=== PATIENT | female | born 1970 | race Caucasian/White ===

== ENCOUNTER 2019-10-04 18:40 | Observation (INO) | payer SELFPAY ==
[2019-10-04] VITALS (42 sets, daily range): BP systolic 98–127; BP diastolic 42–80; PULSE 60–87; RESP 16–18; TEMP 36.7–37.3; O2SAT 91–99; BMI 26.4
--- NOTE | 2019-10-04 18:51 | ED_ITS ---
Entered by Rupali Byers, acting as scribe for Lorena Salazar Oct 04, 2019 18:40 HPI - General Adult General: Chief complaint: Weakness Stated complaint: sent by doctor for blood transfusion Time Seen by Provider: 10/04/19 18:50 Source: patient and family Mode of arrival: ambulatory Limitations: no limitations History of Present Illness: HPI narrative: 49 yo female presents to ED with complaints of anemia, fatigue and shortness of breath. She said this has not been feeling well for a long time. 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 She was seen at a clinic in [facility] today and her HGB was 5.7 so the patient was instructed to come to the ED for a possible blood transfusion. The patient states she takes Excederin migraine for frequent headaches. Onset (ago): month(s) Radiation: non-radiation Severity: severe Quality: constant (fatigue) and other (frequent shortness of breath) Relieving factors: none Exacerbating factors: none Associated symptoms: Reports headache(s), malaise and short of breath; Deny chest pain, nausea, rash, palpitations, syncope or vomiting Treatments prior to arrival: other (Excederin Migraine) Review of Systems General: Reports: other (negative unless marked) Const: Reports: malaise Eyes: Denies: change in vision or blurry vision ENMT: Denies: throat pain, painful swallowing, hoarseness, ear pain, ear discharge or Change in hearing Card: Denies: chest pain, palpitations, irregular heart rhythm, syncope, pre- syncope, shortness of breath on exertion or shortness of breath when lying down Resp: Denies: productive cough, non-productive cough, wheezing, coughing up blood or chest congestion GI: Denies: abdominal pain, nausea, vomiting, vomiting blood, coffee grounds in vomit, diarrhea, constipation, cramping, blood in stool or black tarry stool : Denies: flank pain, painful urination, urinary frequency, urinary urgency, decreased urine ouput, urinary incontinence or blood in urine Musc: Denies: neck pain, back pain, extremity pain, extremity swelling, joint pain, joint swelling, joint warmth or joint stiffness Skin/Breast: Denies: rash, skin tenderness or yellow skin Neuro: Reports: headache Endo: Denies: excessive thirst, cold intolerance, excessive sweating, flushing or hot flashes Christopher/Lymph: Denies: easy bruising, easy bleeding, petechiae or enlarged lymph nodes All/Imm: Denies: hives, throat swelling, tongue swelling, facial swelling or acute wheezing PFSH ED PFSH: Statuses (acute, chronic, etc) shown below reflect problem list status as previously entered and may not be historically accurate Medical History History of ITP (Acute) Surgical History No history of previous surgery (Acute) Family History Son Cancer Hodgkin's lymphoma diagnosed at age 19, doing well after treatment Father CAD (coronary artery disease) Lots of heart problems Diabetes Social History Smoking and tobacco status: never smoked Alcohol intake: never Substance/Drug Use: never Household members: spouse Marital status: Physical Exam Const: COMMON NORMALS: no apparent distress, oriented x3, no limitations, healthy appearing and well nourished EXAM LIMITATIONS: no altered mental status GENERAL APPEARANCE: cooperative, well kempt and well developed ORIENTATION/CONSCIOUSNESS: Yes awake HENMT: COMMON NORMALS: normocephalic, head/scalp atraumatic, hearing grossly normal bilaterally, external ears normal, EAC's normal, external nose normal and moist oral mucous membranes HEAD & SCALP: normal to inspection, normocephalic and atraumatic FACE & SINUS: normal facial exam and face symmetric NOSE: external nose normal and nares normal EXTERNAL EAR: Yes external ears normal EXTERNAL AUDITORY CANAL: EAC's normal MOUTH: oral and palatal mucosa normal and tongue normal Eye: COMMON NORMALS: PERRL, EOMs intact bilaterally, conjunctivae normal and no scleral icterus GENERAL EYE: normal appearance of both eyes and normal light reflex CONJUNCTIVA: Yes conjunctivae normal SCLERA: sclerae normal CORNEA: Yes corneas normal PUPIL: Yes PERRL DIRECT OPHTHALMOSCOPY: Yes normal light reflex Neck/C-Spine: COMMON NORMALS: full ROM, no lymphadenopathy, supple, no meningeal signs and no JVD GENERAL: Yes normal visual inspection and Yes trachea midline CERVICAL SPINE: Yes cervical ROM normal Chest: COMMONS NORMALS: inspection of chest normal and palpation of chest normal Resp: COMMON NORMALS: normal respiratory effort, no retractions, no use of accessory muscles and clear to auscultation bilaterally EFFORT & INSPECTION: Yes able to speak in complete sentences AUSCULTATION: clear to auscultation bilaterally Cardio: COMMON NORMALS: no JVD, regular rate, regular rhythm, S1 normal heart sound, S2 normal heart sound, no gallops, no clicks, no murmurs and no rub JUGULAR VENOUS DISTENTION: no JVD RATE: regular rate RHYTHM: regular rhythm HEART SOUNDS: S1 normal and S2 normal GI: COMMON NORMALS: soft to palpation, non-tender, no hepatosplenomegaly and no masses INSPECTION: Yes normal to inspection PALPATION: Yes soft and Yes no hepatosplenomegaly RECTAL EXAM: heme negative stool : COMMON NORMALS: Yes no CVA tenderness BLADDER/KIDNEY EXAM: Yes no CVA tenderness Back/Pelvis: COMMON NORMALS: no CVA tenderness, thoracic and lumbar spine normal to inspection, no thoracic nor lumbar tenderness and thoraco-lumbar ROM normal Extremity: COMMON NORMALS: normal to inspection, full ROM, normal capillary refill, no joint enlargement, no clubbing, cyanosis or edema and no calf tenderness Neuro: COMMON NORMALS: oriented x3, CN's II-XII intact bilaterally, moves all extremities, no focal motor deficits and no sensory deficits noted MENINGEAL SIGNS: Yes no meningeal signs Psych: COMMON NORMALS: mental status grossly normal, thought process normal, cooperative, affect normal, speech normal and activity/motor behavior normal APPEARANCE: Yes well kempt SPEECH: Yes normal speech THOUGHT PROCESS: normal thought process Skin: COMMON NORMALS: no rashes or lesions noted, skin turgor normal, no jaundice, no petechiae and no mottling GENERAL SKIN EXAM: no rashes or lesions noted and turgor normal Course Vital Signs: Vital signs: Vital Signs Temperature 99.1 F 10/04/19 23:23 Pulse Rate 60 10/04/19 23:23 Respiratory Rate 18 10/04/19 23:23 Blood Pressure 116/75 10/04/19 23:23 Pulse Oximetry 97 10/04/19 23:23 MDM - General Adult MDM Narrative: Medical decision making narrative: The patient is receiving blood now in the ER. She was Hemoccult negative here. I am still suspicious of a possible GI loss as she takes a lot of nonsteroidal medications for migraine headaches. The case was endorsed to Dr. Beauchamp and she agrees to admit for further evaluation and care and transfusion. Lab Data: Labs: Lab Results 10/04/19 10/04/19 10/04/19 Range/Units 19:05 19:05 19:05 WBC 4.5 (4.0-10.0) 10^3/ uL RBC 3.98 L (4.1-5.3) 10^6/u L Hgb 5.6 L* (11.5-15.3) g/dL Hct 22.9 L (37.0-47.0) % MCV 57.5 L (81-99) fL MCH 14.1 L (28.0-34.0) pg MCHC 24.5 L (30.0-36.0) g/dL RDW 20.8 H (12.1-15.1) % Plt Count 252 (130-400) 10^3/c mm MPV 8.0 (7.4-10.4) fL Total Counted 100 (0-100) Segmented Neutroph ils 53 % Band Neutrophils 3.0 % Lymphocytes (Manua l) 37 % Monocytes (Manual) 3.0 % Absolute Monocytes 0.1 (0.1-0.6) 10^3/c mm Eosinophils (Manua l) 2 % Absolute Eosinophi ls 0.0 (0.0-0.7) 10^3/c mm Metamyelocytes 2.0 % Platelet Estimate Decreased L (Normal) Polychromasia 1+ H Hypochromasia 1+ H Poikilocytosis 1+ H PT (10.5-13.3) SECO NDS INR (0.8-1.2) APTT (23.9-36.7) SECO NDS Sodium 136 (136-145) mmol/L Potassium 4.0 (3.5-5.1) mmol/L Chloride 104 (98-107) mmol/L Carbon Dioxide 21 L (22-29) mmol/L Anion Gap 15.0 (5-19) BUN 20 (6-20) mg/dL Creatinine 0.7 (0.5-0.9) mg/dL GFR Calculation 89.7 L (90-130) mL/min Glucose 95 (74-109) mg/dL Calcium 9.4 (8.6-10.0) mg/Dl Magnesium 2.6 H (1.7-2.3) mg/dL Total Bilirubin 0.3 (0.15-1.2) mg/dL AST 22 (0-32) U/L ALT 18 (0-33) U/L Alkaline Phosphata se 62 (35-105) IU/L Total Protein 7.1 (6.6-8.7) g/dL Albumin 4.5 (3.5-5.2) g/dL Globulin 2.6 (1.3-4.6) g/dL Blood Type A Negative Antibody Screen Negative Crossmatch See Detail 10/04/19 Range/Units 19:05 WBC (4.0-10.0) 10^3/ uL RBC (4.1-5.3) 10^6/u L Hgb (11.5-15.3) g/dL Hct (37.0-47.0) % MCV (81-99) fL MCH (28.0-34.0) pg MCHC (30.0-36.0) g/dL RDW (12.1-15.1) % Plt Count (130-400) 10^3/c mm MPV (7.4-10.4) fL Total Counted (0-100) Segmented Neutroph ils % Band Neutrophils % Lymphocytes (Manua l) % Monocytes (Manual) % Absolute Monocytes (0.1-0.6) 10^3/c mm Eosinophils (Manua l) % Absolute Eosinophi ls (0.0-0.7) 10^3/c mm Metamyelocytes % Platelet Estimate (Normal) Polychromasia Hypochromasia Poikilocytosis PT 13.80 H (10.5-13.3) SECO NDS INR 1.03 (0.8-1.2) APTT 31.3 (23.9-36.7) SECO NDS Sodium (136-145) mmol/L Potassium (3.5-5.1) mmol/L Chloride (98-107) mmol/L Carbon Dioxide (22-29) mmol/L Anion Gap (5-19) BUN (6-20) mg/dL Creatinine (0.5-0.9) mg/dL GFR Calculation (90-130) mL/min Glucose (74-109) mg/dL Calcium (8.6-10.0) mg/Dl Magnesium (1.7-2.3) mg/dL Total Bilirubin (0.15-1.2) mg/dL AST (0-32) U/L ALT (0-33) U/L Alkaline Phosphata se (35-105) IU/L Total Protein (6.6-8.7) g/dL Albumin (3.5-5.2) g/dL Globulin (1.3-4.6) g/dL Blood Type Antibody Screen Crossmatch Discharge Plan Discharge Patient Disposition: Placed in Observation Admit Provider: Sarah Nathan Clinical Impression: Anemia Qualifiers: Anemia type: unspecified type Qualified Code(s): D64.9 - Anemia, unspecified Condition: Stable Discharge Date/Time: 10/04/19 23:24 Coding Level of Care Code ED Executive Sales Assistant for Chg Fwd Exam Problem Focused The documentation recorded by the Zeeshan tena Valerie R, accurately reflects the service I personally performed and the decisions made by Marie paez Eli N Oct 04, 2019 18:40
--- NOTE | 2019-10-04 18:55 | ECG_ITS ---
Measurements Intervals Divide Rate: 68 P: 51 [place]: 131 QRS: 58 QRSD: 73 T: 49 QT: 392 QTc: 419 SINUS RHYTHM LOW QRS VOLTAGE IN PRECORDIAL LEADS [QRS DEFLECTION < 1.0 mV IN CHEST LEADS] No previous ECG available for comparison Electronically Signed On 10-05-2019 16:43:42 WEB METHODS DEVELOPER by Asia Berumen M.D. [email or web address]
[2019-10-04 19:28] LABS: Hematocrit 22.9 % (37.0-47.0); Mean Corpuscular HGB Conc 24.5 g/dL (30.0-36.0); Mean Corpuscular Hemoglobin 14.1 pg (28.0-34.0); Mean Corpuscular Volume 57.5 fL (81-99); Platelet Count 252 10^3/cmm (130-400); Red Blood Count 3.98 10^6/uL (4.1-5.3); Red Cell Distribution Width 20.8 % (12.1-15.1); White Blood Count 4.5 10^3/uL (4.0-10.0)
[2019-10-04 19:32] LABS: INR 1.03 (0.8-1.2); Partial Thromboplastin Time 31.3 SECONDS (23.9-36.7)
[2019-10-04 19:35] LABS: Hemoglobin 5.6 g/dL (11.5-15.3)
[2019-10-04 19:37] LABS: Alanine Aminotransferase 18 U/L (0-33); Albumin Level 4.5 g/dL (3.5-5.2); Alkaline Phosphatase 62 IU/L (35-105); Aspartate Amino Transferase 22 U/L (0-32); Blood Urea Nitrogen 20 mg/dL (6-20); Calcium 9.4 mg/Dl (8.6-10.0); Carbon Dioxide 21 mmol/L (22-29); Chloride 104 mmol/L (98-107); Globulin 2.6 g/dL (1.3-4.6); Glomerular Filtration Rate 89.7 mL/min (90-130); Glucose 95 mg/dL (74-109); Magnesium 2.6 mg/dL (1.7-2.3); Sodium 136 mmol/L (136-145); Total Bilirubin 0.3 mg/dL (0.15-1.2); Total Protein 7.1 g/dL (6.6-8.7)
[2019-10-04 20:10] LABS: Absolute Segmented Neutrophil 2.3 10/cmm (1.6-7.1); Band Neutrophils Absolute 0.1 10^3/cmm (0.0-1.2); Eosinophils 2 %; Lymphocytes 37 %; Monocytes Absolute 0.1 10^3/cmm (0.1-0.6); Platelet Estimate Decreased (Normal); Segmented Neutrophils 53 %; Total Cells Counted 100 (0-100)
[2019-10-04 20:11] LABS: Hypochromasia 1+; Poikilocytosis 1+; Polychromasia 1+
--- NOTE | 2019-10-04 22:58 | P.HP_ITS ---
Providers/Chief Complaint Admitting Physician: Sarah Nathan MD Primary Care Provider: Singh Terrell in [facility] Chief Complaint: sent by doctor for blood transfusion History of Present Illness Anjelica Maza is a 49 year old female who presented to the emergency room after being seen by Dr. Terrell. She presented there with progressive weakness and shortness of breath that has gotten to the point over the last couple of weeks that with any amount of exertion she would have to rest. She also started having chest pain with exertion. She was found to be anemic in the clinic and sent to the emergency room for blood transfusion. In talking with her she does have problems with frequent headaches and will take Excedrin Migraine. The amount she takes varies. Some weeks she does not take any and some days she will take some 4 out of 7 days. Only other medication that she takes is a multivitamin. Denies use of any herbal or other vcvq-win-vndijgg medicines. No family history of bleeding disorder or clotting disorder. She herself has a personal history of ITP about 20 years ago, etiology of which was never identified. She was treated with prednisone only. She has a son with Hodgkin's lymphoma history currently doing well. She denies any upper abdominal pain, blood in her stools or black tarry stools. Has not had any nosebleeds, excessive bruising or obvious bleeding elsewhere. No recent trauma. No flank pain. No hematuria. She does have a longstanding history of heavy periods. Usually her periods will last about 10 days. For 4 days of that timeframe she will use a tampon an hour. This pattern in terms of volume has not changed over 20 years. Periods are still regular. Over the last for 5 years however she has started having significant cramping abdominal pain with her periods. Her as well as she describes that they have become rough compared to what they used to be. Patient is not on any contraceptive therapy. Hemoglobin in the emergency room was 5.6. Coags were normal as were platelets. Hemoccult was negative per ED doctor evaluation. Review of Systems Const: Reports: fatigue; Denies: fever or change in weight Eyes: Denies: change in vision ENMT: Denies: painful swallowing Card: Reports: chest pain, palpitations and lightheadedness Resp: Reports: shortness of breath GI: Denies: abdominal pain, nausea, vomiting, vomiting blood, blood in stool or black tarry stool : Reports: painful menstruation (with heavy flow); Denies: blood in urine, bleeding between periods or change in menstrual flow Musc: Denies: extremity pain or extremity swelling Skin/Breast: Denies: rash, itching or yellow skin Neuro: Reports: headache and weakness in extremities (general, not focal) Christopher/Lymph: Denies: easy bruising, easy bleeding, petechiae, purpura or enlarged lymph nodes Medications/Allergies Home Medications Medication Instructions Recorded Confirmed Last Taken Type xlqsxmu-dcxtbvuwanwuv-yulmlqul 1 tab PO Q6H PRN 10/04/19 10/04/19 Unknown History [Excedrin Migraine] multivitamin 1 tab PO DAILY 10/04/19 10/04/19 Unknown History Allergies Allergy/AdvReac Type Severity Reaction Status Date / Time No Known Allergies Allergy Unverified 10/04/19 19:56 PFSH Acute PFSH: Statuses (acute, chronic, etc) shown below reflect problem list status as previously entered and may not be historically accurate Medical History (Updated 10/04/19 @ 23:52 by Sarah Nathan MD) History of ITP (Acute) Surgical History (Updated 10/04/19 @ 22:56 by Sarah Nathan MD) No history of previous surgery (Acute) Family History (Updated 10/04/19 @ 23:11 by Sarah Nathan MD) Son Cancer Hodgkin's lymphoma diagnosed at age 19, doing well after treatment Father CAD (coronary artery disease) Lots of heart problems Diabetes Social History (Updated 10/04/19 @ 23:11 by Sarah Nathan MD) Smoking and tobacco status: never smoked Alcohol intake: never Substance/Drug Use: never Household members: spouse Marital status: Female Reporductive History: : 3 Para: 3 Spontaneous abortions: No Other female reproductive history: 3 spontaneous vaginal deliveries without any complications Vitals/I&O/Wt Last Vital Signs Temp 99.1 F 10/04/19 22:50 Pulse 60 10/04/19 22:50 Resp 18 10/04/19 22:50 BP 116/75 10/04/19 22:50 Pulse Ox 98 10/04/19 22:50 10/04/19 10/04/19 10/04/19 06:59 14:59 22:59 Intake Total 0 / 0 Balance 0 / 0 Weight last 48 hrs Weight 69.853 kg Physical Exam Const: COMMON NORMALS: average body habitus, oriented x3 and alert HENMT: COMMON NORMALS: normocephalic, head/scalp atraumatic and moist oral mucous membranes (but very pale) Eye: COMMON NORMALS: PERRL, EOMs intact bilaterally and no scleral icterus CONJUNCTIVA: Yes other (very pale) Neck/C-Spine: COMMON NORMALS: supple Resp: COMMON NORMALS: normal respiratory effort, no use of accessory muscles (at rest) and clear to auscultation bilaterally Cardio: COMMON NORMALS: regular rate and regular rhythm HEART SOUNDS: murmur systolic Intensity: II/ Characteristics: soft GI: COMMON NORMALS: soft to palpation and non-tender AUSCULTATION: Yes normoactive bowel sounds Extremity: GENERAL: Yes edema (trace bilateral lower extremities) Neuro: COMMON NORMALS: oriented x3, moves all extremities and no focal motor deficits Psych: COMMON NORMALS: mental status grossly normal, cooperative and affect normal Skin: COMMON NORMALS: skin turgor normal and no petechiae GENERAL SKIN EXAM: no ecchymo, no purpura and pallor Data Other Data: Other data: Short CBC 10/04/19 Range/Units 19:05 WBC 4.5 (4.0-10.0) 10^3/ uL Hgb 5.6 L* (11.5-15.3) g/dL Hct 22.9 L (37.0-47.0) % Plt Count 252 (130-400) 10^3/c mm BMP 10/04/19 19:05 Sodium 136 Potassium 4.0 Chloride 104 Carbon Dioxide 21 L BUN 20 Creatinine 0.7 Glucose 95 Calcium 9.4 Liver Function 10/04/19 Range/Units 19:05 Total Bilirubin 0.3 (0.15-1.2) mg/dL AST 22 (0-32) U/L ALT 18 (0-33) U/L Alkaline Phosphata se 62 (35-105) IU/L Albumin 4.5 (3.5-5.2) g/dL Laboratory Tests 10/04/19 10/04/19 19:05 19:05 PT 13.80 H INR 1.03 APTT 31.3 Magnesium 2.6 H A&P Assessment and plan (1) Shortness of breath: Feel secondary to chronic blood loss and currently profound anemia. Doubt asthma or other respiratory cause of her symptoms presently. Status: Acute Code(s): R06.02 - Shortness of breath (2) Anemia: With profound microcytosis. I personally reviewed the smear. Does not look consistent with spherocytosis. Intermittent teardrop cells, did not see any target cells. No bite cells. Normal platelet count. Some reticulocytes noted but not a large number by my estimation. RBCs are of varying size. Based on history I strongly suspect that this is due to chronic blood loss from menorrhagia. She may have some uterine fibroids from clinical description over the last few years. No reported family history of anemia. She has not been to a doctor by her report in probably 10 years until today. I suspect this is been a gradual decline and she just got to the point that she was symptomatic enough to do something about it. Status: Acute Qualifiers: Anemia type: iron deficiency Iron deficiency anemia type: chronic blood loss Qualified Code(s): D50.0 - Iron deficiency anemia secondary to blood loss (chronic) Code(s): D64.9 - Anemia, unspecified (3) Menorrhagia: Periods lasting 10 days of cycle, continue to be regular but 4 days per cycle is using at least a tampon an hour. For the last 4 to 5 years has had associated abdominal cramping and discomfort throughout menstrual cycles as well suggesting some probable fibroid development. Status: Acute Qualifiers: Menorrahagia type: premenopausal Qualified Code(s): N92.4 - Excessive bleeding in the premenopausal period Code(s): N92.0 - Excessive and frequent menstruation with regular cycle (4) Chronic headaches: Longstanding in nature certainly could be exacerbated by the profound anemia. She takes Excedrin Migraine. I have asked her to try to not take this or really anything other than Tylenol [id number] for the time being until we can ensure that blood losses are not GI in nature. Status: Acute Qualifiers: Headache type: unspecified Intractability: not intractable Qualified Code(s): R51 - Headache Code(s): R51 - Headache Additional A&P Information Additional A&P Information: Observation admission We will send IBC, ferritin, retic on blood prior to transfusion Given the profoundly low MCV and will send off a hemoglobinopathy evaluation Continue transfusion ordered from the emergency room Check test for completeness Check TSH due to menorrhagia Discussed with patient not using Excedrin right now and only using Tylenol for [id number] pain control following instructions on bottle. We will need referral to gynecology for evaluation and discussion of treatment options for menorrhagia as well as dysmenorrhea, versus arranging outpatient transvaginal ultrasound to look for significant uterine fibroids or other pathology prior to such Will need establishment of a PCP to follow apart from this to ensure does not fall through the cracks Start on iron replacement, I discussed with patient potential GI side effects I have low suspicion of chronic GI losses currently based on menstrual history obtained however consideration could be given to EGD to rule out con commitment slow GI losses from periodic NSAID use. I did review this with her. Low risk for VTE presently Supportive care otherwise Concerns and plans discussed with patient and her and both were given an opportunity to ask questions FULL CODE Attestations Medical Necessity Statement*: Currently anticipated stay less than 2 midnights in a patient with profound anemia requiring transfusion. I suspect that after transfusion she will be able to be discharged with outpatient follow-up. Importance of follow-up expressed to her and her . Coding Level of Care Code Acute Pipe Bowls Paint Trimmer for Kennyg Fwd Diagnoses Shortness of breath R06.02 Anemia D50.0 Anemia type: iron deficiency Iron deficiency anemia type: chronic blood loss Menorrhagia N92.4 Menorrahagia type: premenopausal Chronic headaches R51 Headache type: unspecified Intractability: not intractable
--- NOTE | 2019-10-04 23:16 | PC.NURSE ---
patient complains of tongue feeling swollen at this time. patient states this happens frequently and she does not take any medication for this. This nurse examined tongue and does not look swollen. no trouble swallowing and oxygen saturation WNL. ED physician and hospitalist notified of this event. hospitalist checked on patient and okay to continue with blood transfusion.
[2019-10-05] VITALS (17 sets, daily range): BP systolic 97–146; BP diastolic 56–85; PULSE 55–108; RESP 16–18; TEMP 36.6–37.2; O2SAT 96–99
[2019-10-05 00:38] LABS: Ferritin 5 ng/mL (15-150); Iron 18 ug/dL (37-145); Percent Saturation 4.1 % (20-50); Total Iron Binding Capacity 432 mg/dL; Unsaturated Iron Binding 414 ug/dL (112-347)
[2019-10-05 06:39] LABS: Add On to Lab Order(s) Added
[2019-10-05] MEDS: sodium chloride 0.9% 100 ML ×2 (07:45→07:46)
--- NOTE | 2019-10-05 08:47 | USR_ITS ---
PROCEDURE INFORMATION: Exam: US Pelvis Complete, Transabdominal Exam date and time: 10/05/2019 8:59 AM Age: 49 years old Clinical indication: Other: Enlarged uterus TECHNIQUE: Imaging protocol: Real-time transabdominal pelvic ultrasound with image documentation. Complete exam. COMPARISON: No relevant prior studies available. FINDINGS: Uterus/cervix: The uterus measures 13.8 x 10.2 x 10.5 cm and contains a complex vascular mass measuring approximately 8.6 x 6.4 x 8.1 cm. It is uncertain from this examination whether this mass is endometrial and/or myometrial in origin. There are nabothian cysts in the cervix. Right adnexa: The right ovary was not visualized. Left adnexa: The left ovary was not visualized. Free fluid: None. Bladder: Normal. US/US pelvic with transvaginal IMPRESSION: 1. 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 It is uncertain from this examination whether this mass is endometrial and/or myometrial in origin. Evaluation with pelvic MRI may be more helpful for further characterization. 2. The ovaries were not visualized.
[2019-10-05] MEDS: sodium chloride 0.9% 1,000 ML 100 ML IV (10:14)
[2019-10-05 10:24] LABS: HCG Quantitative 0.54 mIU/mL
[2019-10-05 10:33] LABS: Blood Urea Nitrogen 14 mg/dL (6-20); Calcium 9.2 mg/Dl (8.6-10.0); Carbon Dioxide 21 mmol/L (22-29); Chloride 104 mmol/L (98-107); Glomerular Filtration Rate 89.7 mL/min (90-130); Glucose 91 mg/dL (74-109); Sodium 135 mmol/L (136-145); Thyroid Stimulating Hormone 3.27 uIU/mL (0.27-4.20)
[2019-10-05 10:45] LABS: Hematocrit 33.3 % (37.0-47.0); Hemoglobin 9.4 g/dL (11.5-15.3); Lymphocytes # 1.2 10^3/uL (0.8-4.8); Lymphocytes % 32.2 %; Mean Corpuscular HGB Conc 28.2 g/dL (30.0-36.0); Mean Corpuscular Hemoglobin 18.6 pg (28.0-34.0); Mean Corpuscular Volume 65.8 fL (81-99); Monocytes # 0.3 10^3/uL (0.2-0.9); Monocytes % 8.6 %; Neutrophils # 2.2 10^3/uL (1.8-7.7); Neutrophils % 56.9 %; Nucleated Red Blood Cells % 0 %; Platelet Count 218 10^3/cmm (130-400); Red Blood Count 5.06 10^6/uL (4.1-5.3); White Blood Count 3.8 10^3/uL (4.0-10.0)
[2019-10-05 13:42] LABS: Basophils % 0.7 %; Hematocrit 33.5 % (37.0-47.0); Hemoglobin 9.6 g/dL (11.5-15.3); Lymphocytes # 1.1 10^3/uL (0.8-4.8); Lymphocytes % 27.3 %; Mean Corpuscular HGB Conc 28.7 g/dL (30.0-36.0); Mean Corpuscular Hemoglobin 19.4 pg (28.0-34.0); Mean Corpuscular Volume 67.5 fL (81-99); Monocytes # 0.4 10^3/uL (0.2-0.9); Monocytes % 8.4 %; Neutrophils # 2.6 10^3/uL (1.8-7.7); Neutrophils % 62.4 %; Nucleated Red Blood Cells % 0 %; Platelet Count 203 10^3/cmm (130-400); Red Blood Count 4.96 10^6/uL (4.1-5.3); Red Cell Distribution Width 29.6 % (12.1-15.1); White Blood Count 4.2 10^3/uL (4.0-10.0)
[2019-10-05 14:01] LABS: Alanine Aminotransferase 16 U/L (0-33); Albumin Level 4.2 g/dL (3.5-5.2); Alkaline Phosphatase 59 IU/L (35-105); Anion Gap 14.1 (5-19); Aspartate Amino Transferase 21 U/L (0-32); Blood Urea Nitrogen 13 mg/dL (6-20); Calcium 9.4 mg/Dl (8.6-10.0); Carbon Dioxide 25 mmol/L (22-29); Chloride 106 mmol/L (98-107); Globulin 2.8 g/dL (1.3-4.6); Glomerular Filtration Rate 89.7 mL/min (90-130); Glucose 96 mg/dL (74-109); Potassium 4.1 mmol/L (3.5-5.1); Sodium 141 mmol/L (136-145); Total Bilirubin 0.8 mg/dL (0.15-1.2)
--- NOTE | 2019-10-05 14:15 | PC.NURSE ---
This nurse answered pt call light, when this nurse answered call light pt explained that she did not have insurance, and refused MRI, pt asked if she can follow up with her hardwood floor installation helper on Monday and get an MRI with that Automotive Electrician. this nurse then called and explained the reasoning why pt refused MRI, Strongly suggested that she get the MRI done today, however, she may follow up with her hardwood floor installation helper of choice on Monday if she chooses.
--- NOTE | 2019-10-05 15:14 | PM.DCS ---
Discharge Providers Date of Admission: 10/04/19 21:46 Date of Discharge: 10/05/19 Attending Provider at Admission: Sarah Nathan MD Attending Provider at Discharge: Chico Mccollum MD Primary Care Provider: Singh Terrell Diagnoses at Discharge Discharge Diagnosis (1) Shortness of breath: Status: Acute (2) Anemia: Status: Acute Qualifiers: Anemia type: iron deficiency Iron deficiency anemia type: chronic blood loss Qualified Code(s): D50.0 - Iron deficiency anemia secondary to blood loss (chronic) (3) Menorrhagia: Status: Acute Qualifiers: Menorrahagia type: premenopausal Qualified Code(s): N92.4 - Excessive bleeding in the premenopausal period (4) Chronic headaches: Status: Acute Qualifiers: Headache type: unspecified Intractability: not intractable Qualified Code(s): R51 - Headache Reason for Visit Reason for Visit: Reason For Visit: sent by doctor for blood transfusion Hospital Course Discharge Summary: This is a 49-year-old female with no significant past medical history who presents to the emergency room as she was sent by her primary care physician office for a hemoglobin of 5.6. Patient states that for the last few months she has been feeling more fatigued, tired, weak. She has been taking care of her [id number], so she did not have a lot of time for herself, now since her mother lost at her house, she is been noticing that she is more fatigued, tired, weak. For the last few weeks has been short of breath, short of breath with exertion, short of breath with climbing stairs, having intermittent chest pain. Patient was admitted for iron deficiency anemia, received 2 units PRBC, received IV Venofer, hemoglobin improved to 9.9. I would recommend patient get IV Venofer here total of 5 treatments, however as patient does not have insurance, the next best option would be oral iron but this might not be sufficient given her ferritin of 5 and iron of 18. I will discharge the patient on ferrous sulfate, with a close follow-up with her primary care physician next week, for recheck of her hemoglobin. Patient serum test were 0.54, states that for the last 3 years she has had menorrhagia, and prolonged bleeding. She is 49, states that her menstrual cycles occur quite regularly, but her bleeding is quite heavy, and can last 10 days, she states that at times she can go through pads/tampons every 3 hours. She is not sure when her mother and grandmother went through menopause. She states that she did have a grandmother with a history of endometrial cancer. No family history of bleeding disorders. On examination patient was found to have enlarged and hardened uterus. 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 With the patient's and daughter at bedside had a long discussion about possibilities including endometrial cancer, fibroids. I advised patient that as mass is quietly vascular there is a risk of significant bleeding and hemorrhagic shock. I advised that sometimes endometrial cancers and or fibroid cancers can suddenly acutely bleed causing hemorrhagic shock. Patient was advised that if she were to have sudden worsening of bleeding, lightheadedness, dizziness, low blood pressures, call 911 and seek medical care. I advised patient that we should order an MRI of the pelvis, to better evaluate the mass, however patient declined as she did not have insurance and she was worried about the cost. I did speak to DEPUTY CORONER INVESTIGATOR, who are agreeable with MRI, and outpatient follow-up. Patient states that her bleeding this afternoon was minimal, she states that she is at the tail end of her menstrual bleeding, patient is adamant that she wanted to be discharged, patient was adamant that she will follow-up with her program aide on Monday for further evaluation. Physical Exam Const: COMMON NORMALS: no apparent distress HENMT: COMMON NORMALS: normocephalic HEAD & SCALP: normocephalic Neck/C-Spine: COMMON NORMALS: no JVD Lymph: LYMPHATIC: no lymphadenopathy noted Resp: COMMON NORMALS: normal respiratory effort Cardio: COMMON NORMALS: no JVD, regular rate, regular rhythm, S1 normal heart sound and S2 normal heart sound RATE: regular rate RHYTHM: regular rhythm HEART SOUNDS: S1 normal and S2 normal GI: COMMON NORMALS: normal to inspection, nondistended, normoactive bowel sounds PALPATION: Yes mass (Uterus is quite hard, distended, palpable) : COMMON NORMALS: Yes no CVA tenderness BLADDER/KIDNEY EXAM: Yes no CVA tenderness Back/Pelvis: COMMON NORMALS: no CVA tenderness Extremity: COMMON NORMALS: no clubbing, cyanosis or edema and no calf tenderness Discharge Data Data Completed and Pending: Completed Studies During Hospitalization Category Date Time Status US pelvic with tr ansvaginal Stat Ultrasound 10/05/19 08:47 Completed Pending at discharge Category Date Time Status HCG Qualitative U rine Routine Lab 10/04/19 23:59 Ordered Miscellaneous Fatou t Routine Lab 10/04/19 19:05 Received Urinalysis and Mi croscopic Stat Lab 10/04/19 22:30 Ordered Labs from last 24 hours 10/05/19 10/05/19 10/05/19 13:34 13:34 09:46 WBC 4.2 RBC 4.96 Hgb 9.6 L Hct 33.5 L MCV 67.5 L MCH 19.4 L MCHC 28.7 L RDW 29.6 H Plt Count 203 MPV 8.0 Neut % (Auto) 62.4 Lymph % (Auto) 27.3 [place] % (Auto) 8.4 Eos % (Auto) 1.0 Baso % (Auto) 0.7 Reticulocyte % (Au to) Neut # (Auto) 2.6 Lymph # (Auto) 1.1 [place] # (Auto) 0.4 Eos # (Auto) 0.0 Baso # (Auto) 0.0 Nucleated RBC % (a uto) 0 Total Counted Segmented Neutroph ils Band Neutrophils Lymphocytes (Manua l) Monocytes (Manual) Absolute Monocytes Eosinophils (Manua l) Absolute Eosinophi ls Metamyelocytes Nucleated RBCs # 0.0 Platelet Estimate Polychromasia Hypochromasia Poikilocytosis PT INR APTT Sodium 141 Potassium 4.1 Chloride 106 Carbon Dioxide 25 Anion Gap 14.1 BUN 13 Creatinine 0.7 GFR Calculation 89.7 L Glucose 96 Calcium 9.4 Magnesium Iron TIBC % Saturation Unsat Iron Binding Ferritin Total Bilirubin 0.8 AST 21 ALT 16 Alkaline Phosphata se 59 Total Protein 7.0 Albumin 4.2 Globulin 2.8 TSH Ser , Patricia i-Qnt 0.54 Blood Type Antibody Screen Crossmatch 10/05/19 10/05/19 10/04/19 09:46 09:46 19:05 WBC 3.8 L RBC 5.06 Hgb 9.4 L D Hct 33.3 L D MCV 65.8 L D MCH 18.6 L D MCHC 28.2 L D RDW 30.0 H Plt Count 218 MPV 8.0 Neut % (Auto) 56.9 Lymph % (Auto) 32.2 [place] % (Auto) 8.6 Eos % (Auto) 1.0 Baso % (Auto) 1.0 Reticulocyte % (Au to) 1.4700 Neut # (Auto) 2.2 Lymph # (Auto) 1.2 [place] # (Auto) 0.3 Eos # (Auto) 0.0 Baso # (Auto) 0.0 Nucleated RBC % (a uto) 0 Total Counted Segmented Neutroph ils Band Neutrophils Lymphocytes (Manua l) Monocytes (Manual) Absolute Monocytes Eosinophils (Manua l) Absolute Eosinophi ls Metamyelocytes Nucleated RBCs # 0.0 Platelet Estimate Polychromasia Hypochromasia Poikilocytosis PT INR APTT Sodium 135 L Potassium 4.0 Chloride 104 Carbon Dioxide 21 L Anion Gap 14.0 BUN 14 Creatinine 0.7 GFR Calculation 89.7 L Glucose 91 Calcium 9.2 Magnesium Iron TIBC % Saturation Unsat Iron Binding Ferritin Total Bilirubin AST ALT Alkaline Phosphata se Total Protein Albumin Globulin TSH 3.27 Ser , Patricia i-Qnt Blood Type Antibody Screen Crossmatch 10/04/19 10/04/19 10/04/19 19:05 19:05 19:05 WBC RBC Hgb Hct MCV MCH MCHC RDW Plt Count MPV Neut % (Auto) Lymph % (Auto) [place] % (Auto) Eos % (Auto) Baso % (Auto) Reticulocyte % (Au to) Neut # (Auto) Lymph # (Auto) [place] # (Auto) Eos # (Auto) Baso # (Auto) Nucleated RBC % (a uto) Total Counted Segmented Neutroph ils Band Neutrophils Lymphocytes (Manua l) Monocytes (Manual) Absolute Monocytes Eosinophils (Manua l) Absolute Eosinophi ls Metamyelocytes Nucleated RBCs # Platelet Estimate Polychromasia Hypochromasia Poikilocytosis PT 13.80 H INR 1.03 APTT 31.3 Sodium Potassium Chloride Carbon Dioxide Anion Gap BUN Creatinine GFR Calculation Glucose Calcium Magnesium Iron 18 L TIBC 432 % Saturation 4.1 L Unsat Iron Binding 414 H Ferritin 5 L Total Bilirubin AST ALT Alkaline Phosphata se Total Protein Albumin Globulin TSH Ser , Patricia i-Qnt Blood Type A Negative Antibody Screen Negative Crossmatch See Detail 10/04/19 10/04/19 19:05 19:05 WBC 4.5 RBC 3.98 L Hgb 5.6 L* Hct 22.9 L MCV 57.5 L MCH 14.1 L MCHC 24.5 L RDW 20.8 H Plt Count 252 MPV 8.0 Neut % (Auto) Lymph % (Auto) [place] % (Auto) Eos % (Auto) Baso % (Auto) Reticulocyte % (Au to) Neut # (Auto) Lymph # (Auto) [place] # (Auto) Eos # (Auto) Baso # (Auto) Nucleated RBC % (a uto) Total Counted 100 Segmented Neutroph ils 53 Band Neutrophils 3.0 Lymphocytes (Manua l) 37 Monocytes (Manual) 3.0 Absolute Monocytes 0.1 Eosinophils (Manua l) 2 Absolute Eosinophi ls 0.0 Metamyelocytes 2.0 Nucleated RBCs # Platelet Estimate Decreased L Polychromasia 1+ H Hypochromasia 1+ H Poikilocytosis 1+ H PT INR APTT Sodium 136 Potassium 4.0 Chloride 104 Carbon Dioxide 21 L Anion Gap 15.0 BUN 20 Creatinine 0.7 GFR Calculation 89.7 L Glucose 95 Calcium 9.4 Magnesium 2.6 H Iron TIBC % Saturation Unsat Iron Binding Ferritin Total Bilirubin 0.3 AST 22 ALT 18 Alkaline Phosphata se 62 Total Protein 7.1 Albumin 4.5 Globulin 2.6 TSH Ser , Patricia i-Qnt Blood Type Antibody Screen Crossmatch Vitals: Last Vital Signs Temp 98.1 F 10/05/19 10:15 Pulse 108 H 10/05/19 11:44 Resp 18 10/05/19 10:15 BP 117/68 10/05/19 10:15 Pulse Ox 99 10/05/19 11:44 Discharge Plan Discharge Patient Disposition: Home, Self-Care Condition: Stable Prescriptions: New ferrous sulfate 325 mg (65 mg iron) tablet,delayed release (DR/EC) 325 mg PO TID 30 Days Qty: 90 RF: 0 Continued multivitamin Tablet 1 tab PO DAILY RF: 0 Discontinued Excedrin Migraine 250-250-65 mg Tablet 1 tab PO Q6H PRN (Reason: Headache) RF: 0 Discharge Orders: Discharge Order (Routine); Ordered 10/05/19 Ordered By: Chico Mccollum Discharge Diet: Advance as tolerated Discharge Activity: Resume usual activity Activity Restrictions/Additional Instructions: -Take iron as prescribed -Recheck CBC on Monday -If you have sudden worsening of bleeding, lightheadedness, dizziness, shortness of breath, low blood pressure this could be sign of life-threatening bleeding please come back to the emergency room Discharge Attestations Time Spent in Discharge Care*: less than 30 min Quality Metrics Clinical Quality Measures During this hospital stay, did patient experience: None Coding Level of Care Code Acute Elevator Constructor Helper for Chg Fwd Diagnoses Shortness of breath R06.02 Anemia D50.0 Anemia type: iron deficiency Iron deficiency anemia type: chronic blood loss Menorrhagia N92.4 Menorrahagia type: premenopausal Chronic headaches R51 Headache type: unspecified Intractability: not intractable
== END 2019-10-05 16:17 | disposition home or self-care (01) ==
LOC: ER 20:03 → OBGYN 21:51
PROVIDERS: Admitting Provider Hospitalist; Emergency Provider Emergency Medicine; PCP Family Medicine; Visit Provider Family Medicine
DX: D50.0 Iron deficiency anemia secondary to blood loss (chronic) (principal); N92.4 Excessive bleeding in the premenopausal period; R06.02 Shortness of breath; R51 Headache; Z82.49 Family history of ischemic heart disease and other diseases of the circulatory system; Z83.3 Family history of diabetes mellitus
CPT/HCPCS: 36415; 36430; 76830; 76856; 80048; 80053; 82728; 83540; 83550; 83735; 84443; 84702; 85007; 85025; 85027; 85045; 85610; 85730; 86850; 86900; 93005; 99284; G0378; J1756; J7030; P9016

== ENCOUNTER 2021-02-11 14:43 | Outpatient (CLI) | payer SELFPAY ==
--- NOTE | 2021-02-11 15:13 | CT_ITS ---
WS: [id number] CT scan of the head, 02/11/2021 Clinical Data: FORGETFUL, OTHER AMNESIA Comparison: None. DLP: 992.[address] scans at [facility] use at least one of these dose optimization techniques: automat ed exposure control; mA and/or kV adjustment per patient size (includes targeted exams where dose is matched to clinical indication); or iterative reconstruction. Findings: The ventricular system is normal without shift. No recent infarct or hemorrhage is seen. There are no abnormal intracerebral masses. The cerebellum and brainstem are not remarkable. Bony windows of the skull and skull base show no fractures or erosions. The mastoid air cells, contracts intern al auditory canals, sella turcica, intraorbital contents, and paranasal sinuses are unremarkable. CT/CT head wo con* [id number] Impression: Negative CT scan of the head
== END 2021-02-11 14:44 | disposition home or self-care (01) ==
LOC: RADWPI 14:47
PROVIDERS: PCP Nurse Practitioner Family; Visit Provider Nurse Practitioner Family
DX: R41.3 Other amnesia (principal)
CPT/HCPCS: 70450

== ENCOUNTER 2021-03-01 13:21 | Outpatient (CLI) | payer SELFPAY ==
[2021-03-01 14:04] LABS: Basophils % 0.4 %; Eosinophils % 0.8 %; Hematocrit 40.9 % (37.0-47.0); Hemoglobin 13.3 g/dL (11.5-15.3); Lymphocytes # 1.7 10^3/uL (0.8-4.8); Lymphocytes % 36.3 %; Mean Corpuscular HGB Conc 32.5 g/dL (30.0-36.0); Mean Corpuscular Hemoglobin 25.6 pg (28.0-34.0); Mean Corpuscular Volume 78.7 fL (81-99); Mean Platelet Volume 10.3 fL (7.4-10.4); Monocytes # 0.3 10^3/uL (0.2-0.9); Monocytes % 6.9 %; Neutrophils # 2.64 10^3/uL (1.8-7.7); Neutrophils % 55.4 %; Nucleated Red Blood Cells % 0 %; Platelet Count 219 10^3/cmm (130-400); Red Cell Distribution Width 13.9 % (12.1-15.1); White Blood Count 4.8 10^3/uL (4.0-10.0)
--- NOTE | 2021-03-01 17:21 | ONC FU_ITS ---
Dr. Curry follow up note Patient: Anjelica Maza Unit #: [id number]: [id number] Dicatated By: Hina Curry M.D.Date of Visit:Mar 01, 2021 Onc Med Follow-up/Prog Note History of Present Illness: Ms. Anjelica Maza, is a 50-year-old female with history of iron deficiency anemia due to excessive uterine bleeding due to uterine fibroids, underwent hysterectomy and bilateral oophorectomy in end September 2019, at that time she was diagnosed with iron deficiency anemia and since then she is on oral iron supplements with excellent response but during her routine follow-up her labs done on January 30, 2020 showed white blood count 2.9 hemoglobin 13.4 hematocrit 40.4 platelets 212,000 MCV 80.3 absolute neutrophil count 1300 lymphocytes 1400 repeat labs done on February 10, 2021 shows white blood count 3.5, hemoglobin 14.8 hematocrit 46.3 platelets 252,000 MCV 81.5 with a normal differential, Patient denies any recent acute infection, no sinusitis, no urine tract infection, denies any night sweats, denies any weight loss, denies any recurrent fever, denies any peripheral lymphadenopathy, denies any abdominal fullness, denies any new medication intake, denies any alternative oral therapy, denies any wdfg-hqj-[id number] medication. Denies any weight loss, denies any alcohol use denies any smoking. Denies any exposure to sick person. Medications: Advanced Probiotic 1 Capsule Oral daily, D3 + K2 Dots 1 Tablet (of 1000-90 Units - mcg) Oral daily, Daily Multiple Vitamins 1 Tablet Oral daily, Hematex Iron Complex 1 Tablet (of 150 mg) Oral daily, [place] 3-6-9 Fatty Acids 1 Capsule Oral daily, Progesterone 1 Capsule (of 100 mg) Oral daily Allergies: No Known Allergies. Review of Systems: Review of Systems is not available for this patient. Vital Signs: Performed on Mar 01, 2021 15:21 Height - 64 in Weight - 155.0 lbs (HIGH) BSA - 1.76 sq.m BMI - 26.61 Temperature - 97.4 F (LOW) Pulse - 50 /min (LOW) Respiration - 18 /min BP - 113/74 mm(hg) O2 Sat - 97 % Pain - 0 Performance Status: 0 - Fully active, able to carry on all predisease activities without restrictions. (ECOG) Physical Examination: ENMT - No mouth sores, no thrush, no jaundice, Respiratory - Lungs are clear to auscultation, Cardiovascular - Regular rate and rhythm of heart, Abdomen - Soft, bowel sounds present no organomegaly, Extremities - No visible edema. Lab/Imaging: Most recent lab results are not available for this patient. Impression: Leukopenia, etiology unclear could be transient due to underlying subacute infection, or medication related or underlying bone marrow disorder but less likely. Iron deficiency anemia, diagnosed in September 2019 at that time her hemoglobin was 10.5 g, hematocrit 36.8 MCV 67.9, white blood count 5.2, platelets 228,000, iron studies done on October 04, 2019 showed iron saturation 2% iron 11 ferritin less than 1 TIBC 449, patient underwent hysterectomy with bilateral oophorectomy in the end of September 2019 for excessive uterine bleeding, now on oral iron supplement History of migraine headaches Plan: Discussed with patient regarding her labs white blood count 4.8 hemoglobin 13.3 medical 40.9 platelets 219,000 MCV 78.7, with a normal differential Clinically, patient doing well with no new signs symptoms, no B symptoms, no peripheral lymphadenopathy, no organomegaly, her repeat CBC done today shows normalization of mild leukopenia, etiology could be transient leukopenia due to subacute, self-limiting infection. Or medications but patient denies any new medication or niqv-ylj-jlayeng medication or underlying bone marrow disorder but less likely, his repeat CBC done today shows normalization of mild leukopenia with a normal differential and hemoglobin still in normal range but patient is on oral iron supplement since last year and today CBC shows mild drop in her MCV, possibly indicating persistent iron deficiency, will repeat her iron studies today and then she will return to clinic in 1 month with CBC, considering her age, and requiring iron supplement over 1 year, there is a concern whether she has other source of chronic blood loss like GI or she may have underlying partial iron malabsorption, we will also recommend EGD and colonoscopy to complete iron deficiency anemia work-up Return to clinic in 1 month with CBC and iron studies Signed By: Hina Curry M.D. <<Signature on File>>
[2021-03-01 19:51] LABS: Ferritin 74 ng/mL (15-150); Iron 84 ug/dL (37-145); Percent Saturation 29.3 % (20-50); Total Iron Binding Capacity 286 mcg/dl; Unsaturated Iron Binding 202 ug/dL (112-347)
[2021-03-01 21:33] LABS: Vitamin B12 938 pg/mL (232-1245)
== END 2021-03-01 13:22 | disposition home or self-care (01) ==
PROVIDERS: PCP Nurse Practitioner Family; Visit Provider Internal Medicine Hematology & Oncology
DX: D72.819 Decreased white blood cell count, unspecified (principal); D50.9 Iron deficiency anemia, unspecified; Z90.710 Acquired absence of both cervix and uterus; Z90.722 Acquired absence of ovaries, bilateral; Z79.899 Other long term (current) drug therapy
CPT/HCPCS: 36415; 82607; 82728; 83540; 83550; 85025; 99205